=== PATIENT | male | born 1940 | race Caucasian/White ===

== ENCOUNTER 2021-12-29 10:35 | Outpatient (RCR) | payer MEDICARE, BC ==
[~2021-12-29 10:35] MED LIST: ASPIR-LOW81 MG PO; ASPIR-LOX325 MG PO; ASPIRIN 81M81 MG/TA2 PO; CRESTOR PO; DIOVAN PO; DIOVAN320 MG PO; EPA1000 MG PO; FERRIMIN 150150 M1 PO; FERROUS GLUCONA27 MG PO; FIBER TABLETS1 TAB PO; FISH OIL1 IU PO; GLUCOPHAGE PO; HEXAVITAMIN1 CAP PO; MIRALAX 17GM PK1 PKT PO; PROTONIX 40MG T40 MG PO; PULMICORT180 MCG/A1 IH; TOPROL PO; TOPROL XL100 MG PO; VITAMIN B COMPL1 TA1 PO; VITAMIN COMPLEX1 TA1 PO; [UNRECOGNIZED DRUG - REMARK]
== END 2021-12-30 | disposition home or self-care (01) ==
LOC: COL.CR
DX: Z48.812 Encounter for surgical aftercare following surgery on the circulatory system (principal); Z95.5 Presence of coronary angioplasty implant and graft

== ENCOUNTER 2022-01-26 14:23 | Outpatient (RCR) | payer MEDICARE, BC | END 2022-01-30 | disposition home or self-care (01) | LOC: COL.CR | DX: Z48.812 Encounter for surgical aftercare following surgery on the circulatory system (principal); Z95.5 Presence of coronary angioplasty implant and graft ==

== ENCOUNTER 2022-02-28 12:25 | Outpatient (RCR) | payer MEDICARE, BC | END 2022-03-01 | disposition home or self-care (01) | LOC: COL.CR | DX: Z48.812 Encounter for surgical aftercare following surgery on the circulatory system (principal); Z95.5 Presence of coronary angioplasty implant and graft ==

== ENCOUNTER 2022-03-23 08:15 | Outpatient (RCR) | payer MEDICARE, BC | END 2022-04-01 | disposition still patient (30) | LOC: COL.CR | DX: Z48.812 Encounter for surgical aftercare following surgery on the circulatory system (principal); Z95.5 Presence of coronary angioplasty implant and graft ==

== ENCOUNTER 2022-03-30 13:09 | Outpatient (RCR) | payer SELFPAY | END 2022-04-01 | LOC: COL.CR | DX: Z29.8 Encounter for other specified prophylactic measures (principal) ==

== ENCOUNTER → 2022-05-02 | Outpatient (RCR) | payer SELFPAY | LOC: COL.CR | DX: Z29.8 Encounter for other specified prophylactic measures (principal) ==